=== PATIENT | male | born 1955 | race African-American/Black ===

== ENCOUNTER 2019-04-23 05:29 | Inpatient (IN) ==
[2019-04-23] MEDS ORDERED: VANCOMYCIN INJ 1,000 MG in SODIUM CHLORIDE 0.9% 250 ML IV ONE (06:00)
[2019-04-23] MEDS ORDERED: ceFAZolin 1,000 MG in SYRINGE 1 EACH IV ONE (06:00)
[2019-04-23] MEDS ORDERED: GABAPENTIN 400 MG CAPSULE PO ONE (06:18)
[2019-04-23] MEDS ORDERED: FAMOTIDINE 20 MG TABLET PO ONE (06:18)
[2019-04-23] MEDS ORDERED: ACETAMINOPHEN 500 MG TABLET PO ONE (06:18)
[2019-04-23] MEDS ORDERED: DIAZEPAM 5 MG TABLET PO ONE (06:18)
[2019-04-23] MEDS ORDERED: VANCOMYCIN 1,000 MG VIAL ONE (06:57)
[2019-04-23] MEDS ORDERED: DIAZEPAM 5 MG TABLET ONE (06:57)
[2019-04-23] MEDS ORDERED: ceFAZolin 1,000 MG VIAL ONE (06:57)
[2019-04-23] MEDS ORDERED: GABAPENTIN 400 MG CAPSULE ONE (06:57)
[2019-04-23] MEDS ORDERED: FAMOTIDINE 20 MG TABLET ONE (06:58)
[2019-04-23] MEDS ORDERED: ACETAMINOPHEN 500 MG TABLET ONE (06:58)
[2019-04-23] MEDS: LACTATED RINGERS 1,000 ML IV SCH ×2 (08:22→14:03)
[2019-04-23] MEDS ORDERED: LIDOCAINE 2% 5 ML VIAL ONE (08:26)
[2019-04-23] MEDS ORDERED: ROPIVACAINE 0.5% 30 ML VIAL ONE (08:26)
[2019-04-23] MEDS ORDERED: DEXAMETHASONE 4 MG/1 ML VIAL ONE (08:26)
[2019-04-23] MEDS ORDERED: BISACODYL 10 MG SUPP RECTAL PRN (09:49)
[2019-04-23] MEDS ORDERED: ONDANSETRON 4 MG/2 ML VIAL IV PRN (09:49)
[2019-04-23] MEDS ORDERED: LACTULOSE 20 GM/30 ML UDCUP PO PRN (09:49)
[2019-04-23] MEDS ORDERED: TEMAZEPAM 7.5 MG CAPSULE PO PRN (09:49)
[2019-04-23] MEDS ORDERED: diphenhydrAMINE CAP 25 MG CAPSULE PO PRN (09:49)
[2019-04-23] MEDS ORDERED: PROMETHAZINE 25 MG/1 ML VIAL IM PRN (09:49)
[2019-04-23] MEDS ORDERED: MAGNESIUM HYDROXIDE SUSP 30 ML UDCUP PO PRN (09:49)
[2019-04-23] MEDS ORDERED: KETAMINE 500 MG/10 ML VIAL ONE (11:46)
[2019-04-23] MEDS ORDERED: fentaNYL 100 MCG/2 ML VIAL ONE (11:46)
[2019-04-23] MEDS ORDERED: PROPOFOL 200 MG/20 ML VIAL IV ONE ×2 (11:46→11:53)
[2019-04-23] MEDS ORDERED: MIDAZOLAM 2 MG/2 ML VIAL ONE (11:46)
[2019-04-23 11:47] LABS: Apearance,Urine CLEAR (Clear); Bilirubin,Urine Negative (Negative); Blood, Urine Negative (Negative); Glucose,Urine (UA) Negative (Negative); Ketones,Urine Negative (Negative); Nitrite,Urine Negative (Negative); Protein,Urine Negative; Urine Color Straw (Yellow); Urine Specific Gravity 1.008 (1.001-1.035); Urine Urobilinogen < 2.0 EU/DL (0.2-1.0); WBC,Urine <1 /HPF (0-6)
[2019-04-23] MEDS ORDERED: ESMOLOL 100 MG/10 ML VIAL IV ONE (11:47)
[2019-04-23] MEDS ORDERED: METOPROLOL TARTRATE 5 MG/5 ML VIAL IV ONE (11:47)
[2019-04-23] MEDS ORDERED: LABETALOL 100 MG/20 ML VIAL IV ONE (11:47)
[2019-04-23] MEDS ORDERED: ePHEDrine 50 MG/ML AMP ONE (11:47)
[2019-04-23] MEDS ORDERED: ETOMIDATE 40 MG/20 ML VIAL IV ONE (11:47)
[2019-04-23] MEDS ORDERED: SODIUM CHLORIDE 0.9% 100 ML IV ONE (11:48)
[2019-04-23] MEDS ORDERED: SODIUM CHLORIDE 0.9% 250 ML IV ONE (11:48)
[2019-04-23] MEDS ORDERED: PHENYLEPHRINE 1 MG/10 ML SYRINGE IV ONE (11:48)
[2019-04-23] MEDS ORDERED: LACTATED RINGERS 1,000 ML IV ONE (11:48)
[2019-04-23] MEDS ORDERED: GLYCOPYRROLATE 0.4 MG/2 ML VIAL ONE (11:48)
[2019-04-23] MEDS: MORPHINE 4 MG/1 ML VIAL IV PRN (13:59)
[2019-04-23] MEDS: ceFAZolin 2,000 MG in PREMIX 1 EACH IV SCH ×2 (16:09→23:45)
[2019-04-23] MEDS ORDERED: BUPIVACAINE SPINAL 0.75% 2 ML AMP SPINAL ONE (16:21)
[2019-04-23] MEDS: LISINOPRIL/HCTZ 20-25 MG TABLET PO SCH (17:35)
[2019-04-23] MEDS: DOCUSATE SODIUM 100 MG CAPSULE PO SCH (20:25)
[2019-04-23] MEDS: FONDAPARINUX 2.5 MG/0.5 ML SYRINGE SUBCUT SCH (20:26)
[2019-04-24] MEDS: MORPHINE 4 MG/1 ML VIAL IV PRN (02:48)
[2019-04-24 06:03] LABS: Basophils % 0.1 % (0.0-0.8); Eosinophils % 0.4 % (0.00-10.9); Hematocrit 30.7 VOL% (42.0-52.0); Immature Granulocytes % 0.4 %; Immature Granulocytes Absolute 0.03 #; Lymphocytes # 1.1 10*3/uL (1.4-4.0); Lymphocytes % 14.9 % (21.2-54.2); Mean Corpuscular HGB Conc 32.6 GM/DL (32-36); Mean Corpuscular Volume 92.2 FL (87-102); Mean Platelet Volume 9.2 FL (9.6-12.0); Monocytes % 8.3 % (1.7-12.7); Neutrophils % 75.9 % (38.7-73.9); Platelet Count 167 T/CUMM (130-400); Red Blood Count 3.33 MC/CUMM (3.8-5.5); Red Cell Distribution Width 12.7 % (9.3-17.3); White Blood Count 7.5 T/CUMM (4-12)
[2019-04-24 06:19] LABS: Calcium 8.5 MG/DL (8.5-10.1); Osmolality,Calculated 283.1 MOS/KG (273-304)
[2019-04-24] MEDS: DOCUSATE SODIUM 100 MG CAPSULE PO SCH ×2 (09:33→21:26)
[2019-04-24] MEDS: LISINOPRIL/HCTZ 20-25 MG TABLET PO SCH (16:46)
[2019-04-24] MEDS: FONDAPARINUX 2.5 MG/0.5 ML SYRINGE SUBCUT SCH (21:27)
[2019-04-25] MEDS: DOCUSATE SODIUM 100 MG CAPSULE PO SCH (08:24)
[2019-04-25 16:09] VITALS: BP 116/56
[2019-04-25] MEDS: LISINOPRIL/HCTZ 20-25 MG TABLET PO SCH (17:50)
== END 2019-04-25 19:00 | DRG 470 ==
LOC: N.SDSINP 05:29 → N.3E 09:43
PROVIDERS: ADMIT Orthopaedic Surgery; ATTEND Orthopaedic Surgery